=== PATIENT | female | born 1950 | race Caucasian/White ===

== ENCOUNTER 2017-10-24 09:19 | Emergency (ER) | payer MEDICAID ==
[2017-10-24 09:30] VITALS: TEMP 97.1; BMI 26.6
[2017-10-24] MEDS ORDERED: Oxycodone/Acetaminophen 5/325 mg Tab PO STA (09:57)
--- NOTE | 2017-10-24 10:01 | ED PDOC ---
Lower Extremity Pain/Injury Time Seen by Provider: 10/24/17 09:45 Chief Complaint (Nursing): Lower Extremity Problem/Injury History Per: Patient History/Exam Limitations: no limitations Current Symptoms Are (Timing): Still Present Additional Complaint(s): 66-year-old female presents to ED complaining of pain of the left leg s/p epidural shot administered [address] Perez for back pain. Pt believes she may have pinched nerves as of result of the epidural shot. Pt reports she had pain prior to shot, but now worsen. Reports worse with ambulation. Pt denies taking taking anything for pain. Pt feels left leg is swollen. PMD: Lisa Perez Past Medical History Reviewed: Historical Data, Nursing Documentation, Vital Signs Vital Signs: Last Vital Signs Temp 97.1 F L 10/24/17 09:29 Pulse 84 10/24/17 09:29 Resp BP 166/98 H 10/24/17 09:29 Pulse Ox 96 10/24/17 09:29 - Medical History PMH: Anxiety, Asthma, Back Problems, Bipolar Disorder, Depression, HTN, Osteoporosis - Family History Family History: States: Unknown Family Hx - Home Medications Home Medications: Ambulatory Orders Medication Instructions Recorded Lidocaine 1 each TP DAILY PRN #3 adh..patch 10/24/17 - Allergies Allergies/Adverse Reactions: Allergies Allergy/AdvReac Type Severity Reaction Status Date / Time No Known Allergies Allergy Verified 02/01/14 15:37 Review of Systems ROS Statement: Except As Marked, All Systems Reviewed And Found Negative Musculoskeletal: Positive for: Leg Pain (left) Physical Exam - Reviewed Nursing Documentation Reviewed: Yes Vital Signs Reviewed: Yes - Physical Exam Appears: Positive for: In Acute Distress (Moderate) Skin: Positive for: Normal Color, Warm, Dry Eye Exam: Positive for: Normal appearance, EOMI, PERRL Cardiovascular/Chest: Positive for: Regular Rate, Rhythm Respiratory: Positive for: Normal Breath Sounds. Negative for: Respiratory Distress Pulses-Dorsalis Pedis (L): 2+ Back: Positive for: Normal Inspection. Negative for: L CVA Tenderness, R CVA Tenderness, Vertebral Tenderness, Decreased ROM, Muscle Spasm Extremity: Positive for: Normal ROM (Full passive ROM), Tenderness, Capillary Refill (<2 sec), Other ((+) Tenderness to left buttocks posterior down to the foot, (-) edema, (-) erythema). Negative for: Pedal Edema, Deformity, Swelling Neurologic/Psych: Positive for: Alert, Oriented, Gait (Steady), Other ((+) Sensations intact, (+) Muscle Strength 5/5). Negative for: Motor/Sensory Deficits - ECG O2 Sat by Pulse Oximetry: 96 (RA) Pulse Ox Interpretation: Normal Medical Decision Making Medical Decision Making: Impression(s): Acute on Chronic Low Back and Leg pain Time: 09:56 Plan: - Lumbar Spine Complete X-Ray - Motrin Tab - Percocet 5/325 mg Tab - Duplex Lower Extremity Vein Left Ultrasound Time: 10:29 Lumbar Spine Complete X-Ray FINDINGS: BONES: Normal alignment. No listhesis. No fracture. DISC SPACES: Multilevel disc space narrowing, worst at L5-S1. OTHER FINDINGS: Prominent amount of retained colonic stool. IMPRESSION: No acute fracture. Multilevel degenerative changes. Time: 11:09 Duplex Lower Extremity Vein Left Ultrasound FINDINGS: 2-D, color and duplex Doppler analysis of the lower extremity venous circulation using routine protocol at the left common distal femoral as well as popliteal veins. Venous compressibility: Normal. Flow and augmentation patterns: Normal. Visualized veins upper third of calf: Normal. Witt cyst: None. The posterior tibial vein appears patent as well with good compressibility. IMPRESSION: No sonographic evidence for deep venous thrombosis in left lower extremity. Scribe Attestation: Documented by Zeke Mendosa, acting as a scribe for Khushboo Lawrence MD. Provider Scribe Attestation: All medical record entries made by the Scribe were at my direction and personally dictated by me. I have reviewed the chart and agree that the record accurately reflects my personal performance of the history, physical exam, medical decision making, and the department course for this patient. I have also personally directed, reviewed, and agree with the discharge instructions and disposition. Disposition - Clinical Impression Clinical Impression: Sciatica - Disposition Referrals: Nivia Urrutia [Outside] Lisa Perez MD [Primary Care Provider] - Kyrie Canas MD [Staff Provider] - Disposition: Routine/Home Disposition Time: 12:08 Condition: IMPROVED Prescriptions: Lidocaine 1 each TP DAILY PRN #3 adh..patch PRN Reason: Pain, Moderate (4-7) Instructions: Sciatica Forms: [employer] (Hungarian)
[2017-10-24] MEDS ORDERED: Oxycodone/Acetaminophen 5/325 mg Tab ONE (10:03)
--- NOTE | 2017-10-24 10:30 | RAD ---
PROCEDURE: Radiographs of the Lumbar Spine. HISTORY: Low back pain COMPARISON: No prior. FINDINGS: BONES: Normal alignment. No listhesis. No fracture. DISC SPACES: Multilevel disc space narrowing, worst at L5-S1. OTHER FINDINGS: Prominent amount of retained colonic stool. IMPRESSION: No acute fracture. Multilevel degenerative changes.
--- NOTE | 2017-10-24 11:10 | US ---
HISTORY: LLE pain . PRIORS: None. FINDINGS: 2-D, color and duplex Doppler analysis of the lower extremity venous circulation using routine protocol at the left common distal femoral as well as popliteal veins. Venous compressibility: Normal. Flow and augmentation patterns: Normal. Visualized veins upper third of calf: Normal. Witt cyst: None. The posterior tibial vein appears patent as well with good compressibility. IMPRESSION: No sonographic evidence for deep venous thrombosis in left lower extremity.
[2017-10-24 12:13] VITALS: BP 132/74; PULSE 82; RESP 19
[2017-10-25 14:54] VITALS: O2SAT 96
== END 2017-10-24 12:13 | disposition home or self-care (01) ==
LOC: H.ER 09:19 → SUPCPDRO 09:19 → H.ER 12:13
DX: M54.32 Sciatica, left side (principal); F31.9 Bipolar disorder, unspecified; F41.9 Anxiety disorder, unspecified; I10 Essential (primary) hypertension; J45.909 Unspecified asthma, uncomplicated; M81.0 Age-related osteoporosis without current pathological fracture